=== PATIENT | female | born 1980 | race Caucasian/White ===

== ENCOUNTER 2016-09-30 19:22 | Emergency (ER) | payer OTHER ==
[~2016-09-30] VITALS: Ht 147.3 cm; Wt 77.1 kg
[~2016-09-30 19:22] MED LIST: CITA20TA19 PO; METO25TA6 PO; NORG7TAB2 PO
--- NOTE | 2016-09-30 19:35 | NUR ---
TO BED 4 AMBULATORY C/O INTERMITTENT SUBSTERNAL CP ON & OFF X WEDNESDAY W/ L SIDED CP X1 HR RESIN COATER. PT AAOX4 NO ACUTE DISTRESS NOTED, RESP EVEN AND UNLABORED. PLACE PT ON CARDIAC MONITORING, CONTINUOUS POX. PENDING ER MD VOGEL.
[2016-09-30] MEDS ORDERED: MAG HYDROX/AL HYDROX/SIMETH 30 ML UDC PO ONE (20:00)
[2016-09-30] MEDS ORDERED: HYOSCYAMINE SULFATE 0.125 MG TAB.SUBL SL PRN (20:00)
[2016-09-30 20:07] LABS: BASOPHILS % (AUTO) 0.5 % (0.0-2.0); EOSINOPHILS # (AUTO) 0.3 /CMM (0.0-0.7); EOSINOPHILS % (AUTO) 3.6 % (0.0-6.0); HEMATOCRIT 42 % (33-45); LYMPHOCYTES # (AUTO) 2.5 /CMM (0.8-4.8); LYMPHOCYTES % (AUTO) 32.6 % (20.0-44.0); MEAN CORPUSCULAR HEMOGLOBIN 31 PG (26.0-33.0); MEAN CORPUSCULAR HGB CONC 34 g/dl (31.0-36.0); MEAN CORPUSCULAR VOLUME 92 fL (82-100); MONOCYTES # (AUTO) 0.4 /CMM (0.1-1.30); MONOCYTES % (AUTO) 4.7 % (2.0-12.0); NEUTROPHILS # (AUTO) 4.4 /CMM (1.8-8.9); NEUTROPHILS % (AUTO) 58.6 % (43.0-81.0); PLATELET COUNT (AUTO) 318 /CMM (150-450); RDW COEFFICIENT OF VARIATION 11.8 (11.5-15.0); RED BLOOD CELL COUNT(AUTO) 4.54 MIL/uL (4.0-5.2); WHITE BLOOD COUNT (AUTO) 7.6 K/uL (4.3-11.0)
[2016-09-30 20:18] LABS: CALCIUM, SERUM 9.2 mg/dL (8.5-10.1); CREATININE 0.8 mg/dL (0.6-1.3); POTASSIUM 3.8 mmol/L (3.5-5.1)
[2016-09-30 20:23] LABS: ALBUMIN 3.8 g/dL (3.4-5.0); BILIRUBIN,DIRECT 0.1 mg/dL (0.0-0.2); BILIRUBIN,TOTAL 0.3 mg/dL (0.2-1.0); TOTAL PROTEIN, SERUM 7.2 g/dL (6.4-8.2)
[2016-09-30] MEDS ORDERED: MAG HYDROX/AL HYDROX/SIMETH 30 ML UDC ONE (20:38)
--- NOTE | 2016-09-30 21:10 | NUR ---
Patient discharged to home in stable condition. Written and verbal after care instructions given. Patient verbalizes understanding of instruction. ambulatory with a steady gait noted. pt aaox4 no acute distress noted, resp even and unlabored. pt s/o at bedside to take pt home.
[2016-09-30 21:15] VITALS: BP 123/75
== END 2016-09-30 21:15 | disposition home or self-care (01) ==
LOC: ER 19:24
DX: R10.13 Epigastric pain (principal); M94.0 Chondrocostal junction syndrome [Tietze]; K52.9 Noninfective gastroenteritis and colitis, unspecified; Z88.8 Allergy status to other drugs, medicaments and biological substances; Z98.890 Other specified postprocedural states
CPT/HCPCS: 36415; 71010-TC; 76705-TC; 80048-TC; 80076-TC; 83690-TC; 84703-TC; 85025-TC; A4606; Z7610